=== PATIENT | female | born 2000 | race Caucasian/White ===

== ENCOUNTER 2020-03-01 11:17 | Emergency (ER) | payer OTHER ==
[~2020-03-01] VITALS: Ht 152.4 cm; Wt 56.8 kg
[2020-03-01 11:45] VITALS: BP 114/63
== END 2020-03-01 12:56 | disposition home or self-care (01) ==
LOC: EMS 11:18
DX: Z02.89 Encounter for other administrative examinations (principal)
CPT/HCPCS: 71046; 71046-TC